=== PATIENT | female | born 1970 | race Asian ===

== ENCOUNTER 2024-05-07 17:20 | Inpatient (IN) | payer OTHER ==
[~2024-05-07] VITALS: Ht 157.5 cm; Wt 56.0 kg
[2024-05-07] MEDS: VANCOMYCIN 1.25 GM/WATER(PEG) 250 ML IV ONE (19:02)
[2024-05-07] MEDS: CLINDAMYCIN 600 MG/D5% WATER 50 ML IV ONE (19:02)
[2024-05-07 19:10] LABS: BASOPHILS % (AUTO) 0.1 % (0.0-2.0); EOSINOPHILS % (AUTO) 0.7 % (1.0-6.0); HEMATOCRIT 37.2 % (36-46); HEMOGLOBIN 12.6 g/dL (12.0-16.0); LYMPHOCYTES # (AUTO) 1.5 K/uL (1.0-4.8); LYMPHOCYTES % (AUTO) 15.4 % (22.0-44.0); MEAN CORPUSCULAR HEMOGLOBIN 32.7 pg (26.0-34.0); MEAN CORPUSCULAR HGB CONC 33.9 G/dL (31.0-37.0); MEAN CORPUSCULAR VOLUME 96 fL (80-100); MONOCYTES # (AUTO) 0.4 K/uL (0.1-1.0); MONOCYTES % (AUTO) 4.7 % (2.0-9.0); NEUTROPHILS # (AUTO) 7.6 K/uL (1.8-7.7); NEUTROPHILS % (AUTO) 79.1 % (40.0-70.0); PLATELET COUNT (AUTO) 266 K/uL (150-450); RED BLOOD CELL COUNT(AUTO) 3.87 MIL/uL (4.00-5.20); RED CELL DISTRIBUTION WIDTH 13.4 % (11.5-14.5); WHITE BLOOD COUNT (AUTO) 9.6 K/uL (4.5-11.0)
[2024-05-07 19:13] LABS: ANION GAP 11 mmol/L (8-16); CALCIUM, TOTAL 9.6 mg/dL (8.8-10.5); CARBON DIOXIDE 26 mmol/L (22-29); CHLORIDE 102 mmol/L (98-107); CREATININE 0.78 mg/dL (0.60-1.30); GLOMERULAR FILTR. RATE CALC > 60 mL/min (>60); GLUCOSE,RANDOM 125 mg/dL (70-110); POTASSIUM 3.8 mmol/L (3.5-5.1); SODIUM SERUM 139 mmol/L (136-145); UREA NITROGEN, BLOOD 17 mg/dL (7-18)
[2024-05-07 19:24] LABS: LACTIC ACID 1.1 mmol/L (0.4-2.0)
[2024-05-07] MEDS ORDERED: ACETAMINOPHEN 325 MG TABLET PO PRN (20:30)
[2024-05-07] MEDS ORDERED: ONDANSETRON HCL 4 MG/2 ML VIAL IVP PRN (20:30)
[2024-05-07] MEDS: DOCUSATE SODIUM 100 MG CAPSULE PO SCH (21:00)
[2024-05-07] MEDS: CefTRIAXone 1 GM/DEXTROSE 50 ML IV SCH (21:25)
[2024-05-07 23:05] VITALS: BP_SYST 106; BP_SYST 109; BP_DIAS 71; BP_DIAS 77; PULSE 61; PULSE 72; RESP 18; TEMP 94.9; TEMP 97.7; O2SAT 96; O2SAT 99
[2024-05-08] MEDS: HEPARIN SODIUM,PORCINE 5,000 UNITS/ML VIAL SQ SCH (00:29)
[2024-05-08 07:21] LABS: BASOPHILS % (AUTO) 0.1 % (0.0-2.0); EOSINOPHILS % (AUTO) 2.4 % (1.0-6.0); HEMATOCRIT 36.6 % (36-46); HEMOGLOBIN 12.5 g/dL (12.0-16.0); LYMPHOCYTES # (AUTO) 1.7 K/uL (1.0-4.8); LYMPHOCYTES % (AUTO) 25.8 % (22.0-44.0); MEAN CORPUSCULAR HEMOGLOBIN 32.8 pg (26.0-34.0); MEAN CORPUSCULAR HGB CONC 34.2 G/dL (31.0-37.0); MEAN CORPUSCULAR VOLUME 96 fL (80-100); MONOCYTES # (AUTO) 0.4 K/uL (0.1-1.0); NEUTROPHILS # (AUTO) 4.3 K/uL (1.8-7.7); NEUTROPHILS % (AUTO) 65.7 % (40.0-70.0); PLATELET COUNT (AUTO) 253 K/uL (150-450); RED BLOOD CELL COUNT(AUTO) 3.82 MIL/uL (4.00-5.20); RED CELL DISTRIBUTION WIDTH 13.8 % (11.5-14.5); WHITE BLOOD COUNT (AUTO) 6.6 K/uL (4.5-11.0)
[2024-05-08 07:45] LABS: ANION GAP 6 mmol/L (8-16); CARBON DIOXIDE 28 mmol/L (22-29); CHLORIDE 105 mmol/L (98-107); CREATININE 0.65 mg/dL (0.60-1.30); GLOMERULAR FILTR. RATE CALC > 60 mL/min (>60); GLUCOSE,RANDOM 102 mg/dL (70-110); POTASSIUM 3.8 mmol/L (3.5-5.1); SODIUM SERUM 139 mmol/L (136-145); UREA NITROGEN, BLOOD 14 mg/dL (7-18)
[2024-05-08] MEDS: VANCOMYCIN 1GM/WATER(PEG/NADA) 200 ML IV SCH (09:29)
[2024-05-08 11:22] VITALS: BP 114/80; PULSE 68; RESP 18; TEMP 97.9; O2SAT 98
[2024-05-08] MEDS: DiphenhydrAMINE HCL 25 MG CAPSULE PO PRN (12:06)
[2024-05-08] MEDS: DiphenhydrAMINE/ZINC ACET 30 GM CREAM TP SCH (12:06)
[2024-05-08 21:13] VITALS: BP 99/67; PULSE 59; RESP 19; TEMP 98.2; O2SAT 96
[2024-05-09 07:02] VITALS: BP 98/67; PULSE 54; RESP 18; TEMP 98.2; O2SAT 97
[2024-05-09] MEDS: ASCORBIC ACID 500 MG TABLET PO SCH (08:12)
[2024-05-09 08:30] VITALS: BP 117/71; PULSE 68; RESP 18; TEMP 97.9; O2SAT 97
[2024-05-09 08:37] LABS: ANION GAP 7 mmol/L (8-16); CALCIUM, TOTAL 9.1 mg/dL (8.8-10.5); CARBON DIOXIDE 26 mmol/L (22-29); CHLORIDE 106 mmol/L (98-107); CREATININE 0.75 mg/dL (0.60-1.30); GLOMERULAR FILTR. RATE CALC > 60 mL/min (>60); GLUCOSE,RANDOM 94 mg/dL (70-110); POTASSIUM 4.1 mmol/L (3.5-5.1); SODIUM SERUM 139 mmol/L (136-145); UREA NITROGEN, BLOOD 14 mg/dL (7-18); VANCOMYCIN,RANDOM 5.9 mcg/mL (25.0-50.0)
[2024-05-09] MEDS ORDERED: CLIN300C58 PO (10:43)
[2024-05-09] MEDS: CLINDAMYCIN HCL 300 MG CAPSULE PO SCH (11:27)
[2024-05-09 19:53] VITALS: BP 99/71; PULSE 65; RESP 18; TEMP 98.6; O2SAT 97
[2024-05-10 04:40] VITALS: BP 94/64; PULSE 65; RESP 16; TEMP 97.7; O2SAT 98
[2024-05-10 07:55] VITALS: BP 96/61; PULSE 62; RESP 19; TEMP 97.7; O2SAT 98
[2024-05-10] MEDS ORDERED: ASCO500C18 PO (10:41)
[2024-05-10] MEDS ORDERED: DIPH28CR10 (10:51)
[2024-05-10] MEDS ORDERED: ACET650S24 PR (10:53)
[2024-05-10] MEDS ORDERED: ACET650S14 PR (10:54)
[2024-05-10] MEDS ORDERED: ACET-2247 PO (10:57)
== END 2024-05-10 18:00 | DRG 603 ==
LOC: EMS 17:20 → EDH 20:23 → 6S 22:54
PROVIDERS: ADMIT Internal Medicine; ATTEND Internal Medicine
DX: L03.116 Cellulitis of left lower limb (principal); T24.202A Burn of second degree of unspecified site of left lower limb, except ankle and foot, initial encounter; X08.8XXA Exposure to other specified smoke, fire and flames, initial encounter; Y93.89 Activity, other specified; Y92.89 Other specified places as the place of occurrence of the external cause; Y99.8 Other external cause status
CPT/HCPCS: 80048; 80202; 83605; 83735; 84703; 85025; 87040; 96365; 96368; 99285; J0696; J1644; J3490